=== PATIENT | female | born 1980 | race Caucasian/White ===

== ENCOUNTER 2024-01-02 14:26 | Emergency (ER) | payer OTHER ==
--- NOTE | 2024-01-02 14:37 | ED Physician Documentation ---
PD HPI OPHTHO - Stated complaint Stated Complaint: BILAT EYE PX,REDNESS - Chief complaint Chief Complaint: Heent - History obtained from History obtained from: Patient - History of Present Illness Timing - onset: Today Timing - details: Abrupt onset (Patient started to have feeling of irritation, little needles/grit on eyes and feeling of burning on eyelids and face shortly after washing her face with new facewash cream. Started the cream 4 days ago. No known topical allergies. No diffuse hives/rash.) Location: Both Quality / character: Burning Associated symptoms: Tearing. No: Redness, Swelling, Photophobia Contributing factors: Other (new facial wash/cream that she started 4 days ago. No prior similar. Not contact wearer.) Review of Systems Nose: reports: Rhinorrhea / runny nose, Sinus pressure / pain (mild) Throat: denies: Sore throat Cardiac: denies: Chest pain / pressure Respiratory: denies: Dyspnea, Cough PD PAST MEDICAL HISTORY - Past Medical History Past Medical History: Yes Psych: ADD/ADHD - Past Surgical History Past Surgical History: No - Present Medications Home Medications: Ambulatory Orders Medication Instructions Recorded Confirmed Cetirizine [ZyrTEC] 10 mg PO BID #15 tablet 01/02/24 Ketorolac Tromethamine 2 drops EACHEYE QID 3 Days #5 ml 01/02/24 Ketotifen Fumarate [Eye Itch 2 drops EACHEYE QID PRN #5 ml 01/02/24 Relief] dexAMETHasone [Decadron] 4 mg PO DAILY #5 tablet 01/02/24 - Allergies Allergies/Adverse Reactions: Allergies Allergy/AdvReac Type Severity Reaction Status Date / Time No Known Drug Allergies Allergy Verified 01/02/24 14:31 - Social History Does the pt smoke?: No Smoking Status: Never smoker Does the pt drink ETOH?: No Does the pt have substance abuse?: No - Immunizations Immunizations are current?: Yes - POLST Patient has POLST: No PD ED PE NORMAL - Vitals Vital signs reviewed: Yes - General General: Alert and oriented X 3, Well developed/nourished - HEENT HEENT: PERRL, EOMI (has light sensitive. ), Ears normal, Pharynx benign (no noted edema and she has normal voice and swallow. ), Other (anterior chambers are normal appearance. ) - Neck Neck: Supple, no meningeal sign, No adenopathy - Cardiac Cardiac: RRR, No murmur - Respiratory Respiratory: No respiratory distress, Clear bilaterally - Derm Derm: Normal color, Warm and dry Results - Vitals Vitals: Vital Signs - 24 hr 01/02/24 01/02/24 14:31 15:37 Temperature 36.8 C Heart Rate 88 80 Respiratory 16 15 Rate Blood Pressure 150/100 H 141/94 H O2 Saturation 98 96 Oxygen O2 Source Room air PD Medical Decision Making - ED course Complexity details: re-evaluated patient (improved symptoms with Alcaine drops.), considered differential (has had some mild allergies symptoms with congestion. Not ill like fevers/etc. has used new facial soap for 4 days and has symptoms of facial burning so most likely contact dermatitis and conjunctivitis.), d/w patient Departure - Departure Disposition: 01 Home, Self Care Clinical Impression: Allergic conjunctivitis, Contact dermatitis Condition: Stable Record reviewed to determine appropriate education?: Yes Instructions: ED Allergic Conjunctivitis, ED Dermatitis Contact Prescriptions: dexAMETHasone [Decadron] 4 mg PO DAILY #5 tablet Ketotifen Fumarate [Eye Itch Relief] 2 drops EACHEYE QID PRN #5 ml PRN Reason: Itching Ketorolac Tromethamine 2 drops EACHEYE QID 3 Days #5 ml Cetirizine [ZyrTEC] 10 mg PO BID #15 tablet Comments: This sounds likely to be an inflammatory reaction of the eyes either to allergies environmental or more likely the new facial cream, in particular since you are having facial symptoms 2. It does not look like a bacterial conjunctivitis/pinkeye. I would treat you with a combination of anti-inflammatory and antihistamine eyedrops 4 times daily over the next to 3 days until resolved. For the facial component, combination of oral antihistamine and anti- inflammatory. I would anticipate improvement over the next 2 to 3 days and resolution. [facility] [place]. Off work tonight. Presuming this will be improved enough tomorrow to be able to work at that point. Forms: PCP List, Activity restrictions Discharge Date/Time: 01/02/24 15:38
[2024-01-02] MEDS: dexAMETHasone 4 MG TABLET PO STA (15:02)
[2024-01-02] MEDS: CETIRIZINE 10 MG TABLET PO STA (15:02)
[2024-01-02] MEDS: PROPARACAINE 0.5% OPHTH DROPS 15 ML EACHEYE STA (15:02)
[2024-01-02 15:44] VITALS: BP 141/94; O2SAT 96
== END 2024-01-02 15:38 | disposition home or self-care (01) ==
LOC: ED 14:26
DX: H10.13 Acute atopic conjunctivitis, bilateral (principal)
CPT/HCPCS: 99283; A9270; J3490; J8540